=== PATIENT | male | born 1985 | race Caucasian/White ===

== ENCOUNTER 2016-07-31 09:27 | Emergency (ER) | payer BC ==
[2016-07-31 10:37] VITALS: BP 136/79
--- NOTE | 2016-07-31 10:56 | UC ---
Throat Pain/Nasal Josh HPI - HPI Summary HPI Summary: 31 male presents with complaints of sore throat that began yesterday after experiencing symptoms of fever/chills, body aches, nasal congestion and headache since Tuesday. He states the influenza like symptoms have since improved however the sore throat is new and began yesterday. He has had strep in the past and states this feels similar. It hurts upon swallowing, it has been difficult for him to eat and drink. He states he is afebrile but he does feel feverish. Has not tried anything OTC. PMHx significant for GERD. Denies nausea, vomiting, and diarrhea. Does admit to a lingering cough from his illness earlier this week. Denies any hemoptysis. - History of Current Complaint Chief Complaint: UCGeneralIllness Stated Complaint: SORE THROAT Time Seen by Provider: 07/31/16 10:41 Hx Obtained From: Patient Onset/Duration: Sudden Onset Severity: Moderate Pain Intensity: 7 Pain Scale Used: 0-10 Numeric Cough: Productive Associated Signs & Symptoms: Positive: Dysphagia, Nasal Discharge - Allergies/Home Medications Allergies/Adverse Reactions: Allergies Allergy/AdvReac Type Severity Reaction Status Date / Time No Known Allergies Allergy Verified 07/31/16 10:29 Home Medications: Home Medications Dextromethorphan-Phenylephrine [Vicks Dayquil Cold & Flu] 1 cap PO Q6H PRN 07/31 [History Confirmed 07/31/16] Ibuprofen TAB* [Motrin TAB* 800 MG] 800 mg PO Q4H PRN 07/31/16 [History Confirmed 07/31/16] Omeprazole CAP* [Prilosec CAP* 20 MG] 20 mg PO DAILY 07/31/16 [History Confirmed 07/31/16] Yrcukrflrkyuh-Cdzkdoumfg-Dzkqs [Nyquil Severe Cold/Flu 5-6.25-10-325 mg/15Ml] 1 liq PO BEDTIME PRN 07/31/16 [History Confirmed 07/31/16] PMH/Surg Hx/FS Hx/Imm Hx GI/ History Of: Reports: Gastroesophageal Reflux - Surgical History Surgical History: None - Family History Known Family History: Positive: None - Social History Alcohol Use: None Substance Use Type: None Smoking Status (MU): Never Smoked Tobacco Type: Cigarettes Amount Used/How Often: 1/4 PPD Have You Smoked in the Last Year: Yes - Immunization History Vaccination Up to Date: Yes Review of Systems Constitutional: Chills Skin: Negative Eyes: Negative ENT: Sore Throat, Nasal Discharge Respiratory: Cough - lingering from illness earlier this week Cardiovascular: Negative Gastrointestinal: Negative Genitourinary: Negative Motor: Negative Neurovascular: Negative Musculoskeletal: Myalgia - earlier in the week, still feels some what achey Neurological: Negative Psychological: Negative All Other Systems Reviewed And Are Negative: Yes Physical Exam Triage Information Reviewed: Yes Appearance: Well-Appearing, No Pain Distress, Well-Nourished Vital Signs: Initial Vital Signs Temp 98.9 F 07/31/16 10:32 Pulse 93 07/31/16 10:32 Resp 16 07/31/16 10:32 BP 136/79 07/31/16 10:32 Pulse Ox 96 07/31/16 10:32 Vital Signs Reviewed: Yes Eye Exam: Normal Eyes: Positive: Conjunctiva Clear ENT: Positive: Normal ENT inspection, Hearing grossly normal, Pharyngeal erythema, Nasal congestion, TMs normal, Tonsillar swelling. Negative: Tonsillar exudate Dental: Negative: Percussion Tenderness @, Cervical Lymphadenopathy Neck: Positive: Supple, Nontender, No Lymphadenopathy Respiratory: Positive: Chest non-tender, Lungs clear, Normal breath sounds, No respiratory distress, No accessory muscle use Cardiovascular: Positive: RRR, No Murmur, Pulses Normal, Brisk Capillary Refill Abdominal Exam: Normal Musculoskeletal: Positive: Strength Intact, ROM Intact Neurological: Positive: Alert Psychological Exam: Normal Skin Exam: Normal Throat Pain/Nasal Course/Dx - Course Course Of Treatment: strep culture obtained and negative. Illness likely viral due to recent flu like illness in the beginning of this week along with history of mononucleosis and PE findings. vitals are normal, afebrile. however, patient is aware of worsening signs and symptoms to watch out for. if throat is not improving in the next 3 days instructed to return for further evaluation. patient is in agreement with this plan. chloraseptic spray, lozenges, vitamins and salt water swishes. advil/tylenol pain/fever. - Differential Dx/Diagnosis Differential Diagnosis/HQI/PQRI: Influenza, Mononucleosis, Otitis Media, Pharyngitis, Sinusitis, Tonsillitis, URI Provider Diagnoses: Pharyngitis Discharge - Discharge Plan Condition: Stable Disposition: HOME Patient Education Materials: Pharyngitis (ED) Referrals: Mar Hernandez MD [Primary Care Provider] - Additional Instructions: Try using OTC Chloraseptic spray or lozenges to help soothe your sore throat. Take Advil/Tylenol for pain and inflammation. Recommend doing salt water swishes multiple times daily and taking vitamins/ vitamin c. Drink plenty of fluids and get plenty of rest. If you throat does not improve in the next 3-4 days or you develop high fevers of 102-102F please return for further evaluation and to try an antibiotic. If you have any trouble breathing due to swelling of your throat please seek medical attention immediately.
== END 2016-07-31 11:24 | disposition home or self-care (01) ==
LOC: UCCORT 09:27
DX: J02.9 Acute pharyngitis, unspecified (principal); R09.81 Nasal congestion; F17.210 Nicotine dependence, cigarettes, uncomplicated
CPT/HCPCS: 87651; 99201; G0463

== ENCOUNTER 2016-08-11 17:48 | Emergency (ER) | payer BC ==
[2016-08-11 18:50] VITALS: BP 137/85
--- NOTE | 2016-08-11 19:12 | UC ---
Throat Pain/Nasal Josh HPI - HPI Summary HPI Summary: 2 weeks of waxing and waning sore throat and laryngitis---seemed to get a little better 2 days ago but is now bad again - History of Current Complaint Chief Complaint: UCGeneralIllness Stated Complaint: SORE THROAT, NO VOICE Time Seen by Provider: 08/11/16 19:11 Hx Obtained From: Patient Onset/Duration: Gradual Onset, Lasting Weeks - 2 Severity: Moderate Pain Intensity: 5 Pain Scale Used: 0-10 Numeric Cough: None Associated Signs & Symptoms: Positive: Negative - Allergies/Home Medications Allergies/Adverse Reactions: Allergies Allergy/AdvReac Type Severity Reaction Status Date / Time No Known Allergies Allergy Verified 07/31/16 10:29 PMH/Surg Hx/FS Hx/Imm Hx Previously Healthy: No GI/ History Of: Reports: Gastroesophageal Reflux - Surgical History Surgical History: None - Family History Known Family History: Positive: None - Social History Occupation: Employed Full-time Lives: With Family Alcohol Use: None Substance Use Type: None Smoking Status (MU): Never Smoked Tobacco Type: Cigarettes Amount Used/How Often: 1/4 PPD Have You Smoked in the Last Year: Yes Household Exposure Type: Cigarettes Cessation Counseling: Patient Advised to Stop - Immunization History Vaccination Up to Date: Yes Review of Systems Constitutional: Negative Skin: Negative Eyes: Negative ENT: Sore Throat - laryngitis Respiratory: Negative Cardiovascular: Negative Gastrointestinal: Negative Genitourinary: Negative Motor: Negative Neurovascular: Negative Musculoskeletal: Negative Neurological: Negative Psychological: Negative All Other Systems Reviewed And Are Negative: Yes Physical Exam Triage Information Reviewed: Yes Appearance: Well-Appearing, No Pain Distress, Well-Nourished Vital Signs: Initial Vital Signs Temp 97.8 F 08/11/16 18:44 Pulse 73 08/11/16 18:44 Resp 16 08/11/16 18:44 BP 137/85 08/11/16 18:44 Pulse Ox 99 08/11/16 18:44 Vital Signs Reviewed: Yes Eye Exam: Normal Eyes: Positive: Conjunctiva Clear ENT Exam: Normal ENT: Positive: Normal ENT inspection, Hearing grossly normal, Pharynx normal, TMs normal, Muffled/hoarse voice. Negative: Nasal congestion, Nasal drainage, Tonsillar swelling, Tonsillar exudate, Trismus Dental Exam: Normal Neck exam: Normal Neck: Positive: Supple, Nontender, No Lymphadenopathy Respiratory Exam: Normal Respiratory: Positive: Chest non-tender, Lungs clear, Normal breath sounds, No respiratory distress, No accessory muscle use Cardiovascular Exam: Normal Cardiovascular: Positive: RRR, No Murmur, Pulses Normal, Brisk Capillary Refill Musculoskeletal Exam: Normal Musculoskeletal: Positive: Strength Intact, ROM Intact, No Edema Neurological Exam: Normal Neurological: Positive: Alert, Muscle Tone Normal Psychological Exam: Normal Skin Exam: Normal Diagnostics - Laboratory Diagnostic Studies Completed/Ordered: rst (-) Throat Pain/Nasal Course/Dx - Course Assessment/Plan: prednisone, increase fluids, follow with pcp - Differential Dx/Diagnosis Differential Diagnosis/HQI/PQRI: Laryngitis, Pharyngitis, Sinusitis, URI Provider Diagnoses: Laryngitis Discharge - Discharge Plan Condition: Stable Disposition: HOME Prescriptions: predniSONE TAB* [Deltasone TAB*] 50 mg PO DAILY #4 tab Patient Education Materials: Prednisone (By mouth), Laryngitis (ED), Viral Syndrome (ED) Referrals: Irlanda Cevallos MD [Medical Doctor] - 1 Week
== END 2016-08-11 19:55 | disposition home or self-care (01) ==
LOC: UCCORT 17:48
DX: J04.0 Acute laryngitis (principal); K21.9 Gastro-esophageal reflux disease without esophagitis; F17.210 Nicotine dependence, cigarettes, uncomplicated
CPT/HCPCS: 87651; 99212; G0463

== ENCOUNTER 2017-12-28 11:17 | Emergency (ER) | payer BC, OTHER ==
[2017-12-28 11:49] VITALS: BP 125/79
--- NOTE | 2017-12-28 12:04 | UC ---
Knee Pain HPI - HPI Summary HPI Summary: On Tuesday of this week patient noted some irritation and itching to the front of his left knee. Upon waking Tuesday he noted the area to be red and warm and swollen. He states that he took a needle and made a hole and some pus drained. He states that it got worse and he drained some additional pus; however, today the knee seems to be more painful and swollen. Sometimes he gets a sharp stabbing pain that radiates into the knee. He denies any history of injury, as well as fever and chills. He has no history of MRSA. - History of Current Complaint Chief Complaint: UCLowerExtremity Stated Complaint: LEFT KNEE PAIN Time Seen by Provider: 12/28/17 11:49 Hx Obtained From: Patient Onset/Duration: Gradual Onset Pain Intensity: 6 Aggravating Factor(s): Movement, Weight Bearing Alleviating Factor(s): Nothing Associated Signs And Symptoms: Positive: Swelling, Redness. Negative: Weakness , Numbness, Tingling Able to Bear Weight: Yes - Allergies/Home Medications Allergies/Adverse Reactions: Allergies Allergy/AdvReac Type Severity Reaction Status Date / Time No Known Allergies Allergy Verified 12/28/17 11:36 PMH/Surg Hx/FS Hx/Imm Hx GI/ History: Gastroesophageal Reflux - Surgical History Surgical History: None - Family History Known Family History: Positive: Other - Esophageal cancer - Social History Occupation: Employed Full-time Lives: With Family Alcohol Use: Rare Substance Use Type: None Smoking Status (MU): Former Smoker Type: Cigarettes Amount Used/How Often: 1/4 PPD Have You Smoked in the Last Year: Yes Household Exposure Type: Cigarettes - Immunization History Most Recent Tetanus Shot: UTD Vaccination Up to Date: Yes Review of Systems Constitutional: Negative Skin: Rash - Left anterior knee Eyes: Negative ENT: Negative Respiratory: Negative Cardiovascular: Negative Gastrointestinal: Negative Genitourinary: Negative Motor: Negative Neurovascular: Negative Musculoskeletal: Other: - Pain redness and swelling to the frontal left knee Neurological: Negative Psychological: Negative Is Patient Immunocompromised?: No All Other Systems Reviewed And Are Negative: Yes Physical Exam Triage Information Reviewed: Yes Appearance: Well-Appearing Vital Signs: Initial Vital Signs Temp 97.8 F 12/28/17 11:36 Pulse 71 12/28/17 11:36 Resp 16 12/28/17 11:36 BP 125/79 12/28/17 11:36 Pulse Ox 98 12/28/17 11:36 Vital Signs Reviewed: Yes Eyes: Positive: Conjunctiva Clear ENT: Positive: Normal ENT inspection Neck: Positive: Supple, Nontender, No Lymphadenopathy Respiratory: Positive: Lungs clear, Normal breath sounds Cardiovascular: Positive: RRR, No Murmur Abdomen Description: Positive: Nontender, No Organomegaly, Soft, Other: - No inguinal adenopathy. Negative: Distended, Guarding Bowel Sounds: Positive: Present Musculoskeletal: Positive: Other: - Left lower extremity exam: Hip is without deformity or tenderness. The left anterior knee has mild to moderate swelling and tenderness plus a tiny central pustule is noted. This is consistent with an and infectious bursitis. The joint itself does not appear to be swollen and has full active and passive range of motion with no limitation or instability; however, patient notes sharp pain to the front of his knee on flexion. There is no associated red streaking. The calf ankle and foot are nontender and have gross sensorivascular motor function. Neurological: Positive: Alert Psychological: Positive: Age Appropriate Behavior Skin Exam: Normal Knee Pain Course/Dx - Course Course Of Treatment: History and physical exam discussed with Dr. Gomez. He evaluated the pt-see his note. I called the office of Dr. Conway. They request patient stop by their office when he leaves here and they will give him an appointment to see the orthopedist tomorrow in follow-up. I have no concern for septic joint and the patient is nontoxic. Dr Gomez opted not to drain the bursa thus no culture obtained. - Differential Dx/Diagnosis Provider Diagnoses: Infected bursa L anterior knee Discharge - Sign-Out/Discharge Documenting (check all that apply): Patient Departure All imaging exams completed and their final reports reviewed: No Studies - Discharge Plan Condition: Stable Disposition: HOME Prescriptions: Clindamycin Cap(NF) [Clindamycin Cap 300 mg Cap(NF)] 300 mg PO TID 10 Days #30 cap Patient Education Materials: Knee Bursitis (ED) Forms: *Work Release Referrals: Gee Conway MD [Medical Doctor] - 1 Day Additional Instructions: DIAGNOSIS: INFECTED BURSA LEFT ANTERIOR KNEE. LEAVE HERE AND GO DIRECTLY TO DR CONWAY'S OFFICE TO MAKE A FOLLOW UP APPOINTMENT FOR TOMORROW. DO NOT POKE AT OR SQUEEZE THE AREA. GO DIRECTLY TO THE ER FOE FEVER OR WORSENING. - Billing Disposition and Condition Condition: STABLE Disposition: Home
[2017-12-28] MEDS ORDERED: Lidocaine 1%* 5 ML VIAL INJ ONE (12:16)
== END 2017-12-28 12:53 | disposition home or self-care (01) ==
LOC: UCCORT 11:17
DX: M71.162 Other infective bursitis, left knee (principal); Z87.891 Personal history of nicotine dependence
CPT/HCPCS: 99212; G0463